=== PATIENT | female | born 1995 | race Caucasian/White ===

== ENCOUNTER 2018-07-13 21:07 | Emergency (ER) | payer SELFPAY ==
[~2018-07-13] VITALS: Ht 157.5 cm; Wt 80.8 kg
[~2018-07-13 21:07] MED LIST: CYCL10TA7 PO; IBUP200C11 PO; NITR-58 PO; PHEN-538 PO
[2018-07-13 21:09] VITALS: Ht 157.5 cm; Wt 80.8 kg
--- NOTE | 2018-07-13 23:08 | ERD ---
ER Documentation Chief Complaint Chief Complaint BILATERAL BREAST PAIN; WITH DISCHARGE [id number]; NOT BREAST FEEDING HPI 23-year-old female, presents to the emergency department, complaining of 1 month with bilateral breast pain, dull, intermittent, 3/10, associated with occasional episodes of bilateral nipple discharge. The patient denies being currently , no masses, no local erythema, warmth or tenderness. The patient also denies headaches, blurry vision, no acute changes in weight. ROS All systems reviewed and are negative except as per history of present illness. Medications Home Meds Active Scripts Ibuprofen* (Motrin*) 400 Mg Tab, 400 MG PO Q6H PRN for PAIN AND OR ELEVATED TEMP, #30 TAB Prov:ANITA ROWELL MD 07/14/18 Cyclobenzaprine Hcl* (Cyclobenzaprine Hcl*) 10 Mg Tablet, 10 MG PO TID, #15 TAB Prov:NOEL THOMPSON NP 04/17/15 Nitrofurantoin Monohyd Macrocr* (Macrobid*) 100 Mg Capsr, 100 MG PO BID for 5 Days, CAP Prov:NOEL THOMPSON NP 04/17/15 Phenazopyridine Hcl* (Pyridium*) 200 Mg Tab, 200 MG PO TID PRN for DYSURIA, #6 TAB Prov:DIANE WILSON NP 01/09/15 Nitrofurantoin Monohyd Macrocr* (Macrobid*) 100 Mg Capsr, 100 MG PO BID for 7 Days, CAP Prov:DIANE WILSON NP 01/09/15 Reported Medications Ibuprofen* (Advil*) Unknown Strength Capsule, PO Q6H PRN for PAIN, CAP 01/09/15 Allergies Allergies: Coded Allergies: No Known Allergy (Unverified , 01/09/15) PMhx/Soc Medical and Surgical Hx: pt denies Medical Hx History of Surgery: No Anesthesia Reaction: No Hx Neurological Disorder: No Hx Respiratory Disorders: No Hx Cardiac Disorders: No Hx Psychiatric Problems: No Hx Miscellaneous Medical Probl: No Hx Alcohol Use: No Hx Substance Use: No Hx Tobacco Use: No FmHx Family History: No diabetes, No coronary disease Physical Exam Vitals Vital Signs Date Temp Pulse Resp B/P (MAP) Pulse Ox O2 O2 Flow FiO2 Time Delivery Rate 07/13/18 99.3 90 19 138/72 98 21:09 (94) Physical Exam Const: No acute distress Head: Atraumatic Eyes: Normal Conjunctiva ENT: Normal External Ears, Nose and Mouth. Neck: Full range of motion. No meningismus. Resp: Clear to auscultation bilaterally Breast: Symmetrical, no skin changes, no masses, no lymphadenopathy, no nipple discharge Cardio: Regular rate and rhythm, no murmurs Abd: Soft, non tender, non distended. Normal bowel sounds Skin: No petechiae or rashes Back: No midline or flank tenderness Ext: No cyanosis, or edema Neur: Awake and alert Psych: Normal Mood and Affect Results 24 hrs Laboratory Tests Test 07/13/18 23:15 POC Beta HCG, Qualitative NEGATIVE Procedures/MDM Vital signs stable. Differential diagnosis considered include , prolactinoma, thyroid disease, hematoma, mastitis, lipoma, cyst, fibroglandular changes of the breast. Low suspicion for malignancy. During the ED course the patient remained stable, no new complaints. Results and clinical impression discussed with the patient who agrees with management. The patient is stable to be treated outpatient and will be discharged home with a Rx for ibuprofen, some side effects of prescribed medications (headache, rash, nausea, vomiting, diarrhea, bleeding, hypertension, interactions with other medications) were reviewed. Follow up with the primary care provider in the next 48h has been recommended. If symptoms persist, worsen or new symptoms develop, then patient should return to the ED immediately. Instructions explained and given directly by me to the patient with acknowledgment and demonstrated understanding. Disclaimer: Inadvertent spelling and grammatical errors are likely due to EHR/dictation software use and do not reflect on the overall quality of patient care. Also, please note that the electronic time recorded on this note does not necessarily reflect the actual time of the patient encounter. Departure Diagnosis: Primary Impression: Bilateral mastodynia Additional Impressions: Galactorrhea Negative test Condition: Stable Additional Instructions: Thank you very much for allowing us to participate in your care. Your health and safety is our top priority at [facility]. The evaluation in the emergency department has been done to rule out an acute emergency, therefore, chronic conditions like malignancy or other diseases have not been evaluated; therefore, you need to follow up with a primary care provider in the next 48h. If symptoms persist, worsen or new symptoms develop, then patient should return to the ED immediately. Call your primary care doctor TOMORROW for an appointment during the next 2-4 days and bring all the information provided. Have prescriptions filled and follow precisely the directions on the label. If the symptoms get worse and your provider is unavailable, return to the Emergency Department immediately. ANITA ROWELL MD Jul 13, 2018 23:07
[2018-07-14] MEDS ORDERED: IBUP-1561 PO (00:01)
== END 2018-07-14 00:12 | disposition home or self-care (01) ==
LOC: FTE 21:07
DX: N64.4 Mastodynia (principal); N64.3 Galactorrhea not associated with childbirth; Z32.02 Encounter for pregnancy test, result negative
CPT/HCPCS: 81025; 99283